=== PATIENT | female | born 1980 | race Caucasian/White ===

== ENCOUNTER 2025-05-31 13:25 | Outpatient (AMB) | payer OTHER, SELFPAY ==
--- NOTE | 2025-05-31 13:28 | MHC.PC.OV ---
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 Required: No Accompanied by: Self / Same As Patient Allergies cat dander (cats) Allergy (Mild, Verified 05/31/25 13:35) Itchy Eyes Medication List - Last Reconciled 05/31/25 by Yuridia Dejesus PA-C No Known Home Meds Tobacco use date assessed: 05/31/25 Dental Screening Dental Screen Date: 05/31/25 Did you have a dental visit in the last 12 months?: No Did you have a dental problem in the last 6 months where you did not have access to dental care?: No Was dental information given to patient?: No 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 Presenting to establish primary care after approximately 20 years without a primary doctor. The patient reports an eczema-like condition in the right ear that is itchy and occasionally painful, which previously had some discharge. This recurred after the patient lapsed in using ear drops prescribed by an urgent care. The patient also reports a recurring rash under the arm and in the antecubital fossa, which has previously responded to exgf-neb-bjusxeg cortisone cream. A lump in the armpit was noted a couple of months ago, which has not been growing or moving. Family history is positive for breast cancer in the maternal grandmother. Eye doctor: Robert yearly mammo: ordered pap smear: referral placed vaccines: Td [facility] Medical History Eczema of external ear Uterine fibroid Family History Paternal Grandmother Breast cancer Heart attack Mother Heart attack, Onset Age: 54 Maternal Grandmother Heart attack Social History Alcohol intake: current Patient Tobacco Use Status: Never used Tobacco e-Cigarette/Vaping Use: Never Used Current occupational status: employed Cognitive needs: No Hearing needs: No Vision needs: Yes Female Reproductive History Menstrual Duration of menses: 6-7 days control method: none Total pregnancies: 0 History of abnormal pap smear: No Questionnaire PHQ-9 Over the last 2 weeks, how often have you been bothered by any of the following problems? 1. Little interest or pleasure in doing things: not at all 2. Feeling down, depressed, or hopeless: not at all 3. Trouble falling or staying asleep, or sleeping too much: not at all 4. Feeling tired or having little energy: several days 5. Poor appetite or overeating: not at all 6. Feeling bad about yourself - or that you are a failure or have let yourself or your family down: not at all 7. Trouble concentrating on things, such as reading the newspaper or watching television: not at all 8. Moving or speaking so slowly that other people could have noticed. Or the opposite - being so fidgety or restless that you have been moving around a lot more than usual: not at all 9. Thoughts that you would be better off or of hurting yourself in some way: not at all Total score: 1 Depression Screening Interpretation: Negative Depression Screening Done: Yes 19724 - PHQ-9 Billing: Yes Source: Developed by Drs. Hill Judd, Karol Barnett, Amilcar Irving and colleagues, with an educational callie from [employer]. Thrive Questionnaire Date Thrive assessed: 05/31/25 I am a: Patient What is your living situation today?: I have a steady place to live Within the past 12 months, did the food you bought not last and you didn't have the money to get more?: Never true Within the past 12 months, did you worry whether your food would run out before you got money to buy more?: Never true Do you have trouble paying for medicines?: I choose not to answer this question Do you have trouble getting transportation to medical appointments?: No Do you have trouble paying your heating and electricity bill?: No Do you have trouble taking care of your child, family member or friend?: I choose not to answer this question Do you have trouble with day-to-day activities such as bathing, preparing meals, shopping, managing finances, etc.?: No Are you currently unemployed and looking for a job?: No Are you interested in more education?: I choose not to answer this question Please select the resources that you would like help with: None Currently or been in a relationship where the following occur: No concerns reported THRIVE Score: 0 AUDIT C Alcohol Use Questionnaire (AUDIT-C) 1. How often do you have a drink containing alcohol?: 2-3 times a week 2. How many drinks containing alcohol do you have on a typical day when you are drinking?: 1 or 2 3. How often do you have six or more drinks on one occasion?: Less than monthly Total Score: 4 Score Reviewed/Action Taken: Yes LIZ-7 AMB Questionnaire LIZ-7 Date LIZ - 7 assessed: 05/31/25 Feeling nervous, anxious, or on edge: 0 = Not at all Not being able to stop or control worryin = Not at all Worrying too much about different things: 0 = Not at all Trouble relaxin = Several days Being so restless that it is hard to sit still: 0 = Not at all Becoming easily annoyed or irritable: 1 = Several days Feeling afraid as if something awful might happen: 0 = Not at all Total LIZ-7 score (0-4 normal; 5-9 mild; 10-14 moderate; 15-21 severe): 2 Source: Developed by Drs. Hill Judd, Karol Barnett, Amilcar Irving and colleagues, with an educational callie from [employer]. Review of Systems Const Denies body aches, Denies chills, Denies fever(s), Denies headache(s) and Denies poor appetite Eyes Reports no additional complaints and Reports requires corrective lenses ENT Denies dysphagia, Denies dizziness, Denies headache(s) and Denies odynophagia Card Denies chest pain, Denies syncope, Denies edema, Denies irregular heart rhythm, Denies lightheadedness and Denies dyspnea Resp Denies cough and Denies dyspnea GI Denies abdominal pain, Denies constipation, Denies dysphagia, Denies diarrhea, Denies nausea, Denies odynophagia and Denies vomiting Reports no additional complaints Musc Reports no additional complaints and Denies abnormal gait Skin/Breast Reports system reviewed and no additional complaints, except as documented Neuro Denies abnormal gait, Denies dizziness, Denies syncope and Denies headache(s) Psych Reports no additional complaints Physical exam (Primary Care) Vital Signs: Last Vital Signs Resp 18 05/31/25 13:30 Oxygen Delivery Method Room Air 05/31/25 13:30 BMI result Body Mass Index 26.3 Tobacco/Smoking Status: Tobacco use Status Patient Tobacco Use Status Never used Tobacco 05/31/25 13:33 Depression Screening Interpretation: Negative Currently or been in a relationship where the following occur: No concerns reported Const General: cooperative, healthy appearing, comfortable and no acute distress Orientation/consciousness: patient oriented x3 HENMT Head: Yes normocephalic Ears: hearing grossly normal bilaterally General nose exam: Normal external nose present Face and sinus: Yes normal facial exam and Yes sinuses nontender Mouth: Normal oral and palatal mucosa present and tongue normal Throat: Yes posterior oropharynx normal Eyes General: appearance normal, both eyes and all related structures Conjunctivae: conjunctivae normal Pupils: Equal, round and reactive pupils present EOM: EOMs intact bilaterally and No Nystagmus present Neck Neck: Yes full ROM and Yes no lymphadenopathy Chest Chest palpation & inspection: normal inspection of the chest Chest/axillae images:  1. soft, nontender, mobile, mass Resp Effort & Inspection: normal respiratory effort Auscultation: clear to auscultation bilaterally, no crackles, no rales, no rhonchi and no wheezes Cardio Rate: regular rate Rhythm: regular rhythm Peripheral pulses: radial pulses present and dorsalis pedis present GI Inspection: Yes normal to inspection and No Abdominal wall edema Palpation (GI): Soft to palpation, not firm and nontender Auscultation: normal bowel sounds Rectal Exam - Female: deferred General: Yes no CVA tenderness Back/Spine/Pelvis Back: no CVA tenderness Skin Other: dry, eczematous rash right pinna and right axilla General skin exam: no rashes or lesions noted Neuro General: patient oriented x3 Cranial nerves: Yes Equal, round and reactive pupils present, Yes Midline tongue present, Yes Ability to bilaterally elevate shoulders present and No Nystagmus present Gait exam (Neuro): Normal gait present Extrem General: Yes normal to inspection, Yes full ROM and No edema Psych Speech and movement: Normal speech and movement present Affect: normal affect Attitude: cooperative Insight: Good insight present (Psych) Judgement: Good judgement present (Psych) Coding Level of Care Code New Pt Prev Care 40-64y(75423) Diagnoses Annual physical exam Z00.00 Eczema L30.9 Eczema of external ear H60.549 Lump of axilla R22.30 Additional Codes PHQ-9 - 06620 - PHQ-9 Billing: Yes ([id number]) Assessment & Plan Assessment & Plan (1) Annual physical exam: Code(s): Z00.00 - Encounter for general adult medical examination without abnormal findings Category: Medical Plan: She is overdue for mammogram and this has been ordered. I did also place a referral for aircraft designer for updated pap smears. Blood work is ordered today. PLan to follow up in 3 months or sooner as needed. Healthy diet and regular exercise is encouraged. (2) Eczema: Code(s): L30.9 - Dermatitis, unspecified Category: Medical Plan: The patient presents with an eczema-like rash in the right ear and under the arms, consistent with dermatitis. The plan includes prescribing a topical cream for both the external ear and arms, along with ear drops for the inflammation and itching within the ear canal. The patient was instructed to use these medications for no more than 14 days, and the prescriptions were sent to the preferred pharmacy. (3) Eczema of external ear: Code(s): H60.549 - Acute eczematoid otitis externa, unspecified ear Category: Medical Plan: see above (4) Lump of axilla: Code(s): R22.30 - Localized swelling, mass and lump, unspecified upper limb Category: Medical Plan: A right axillary lump was identified on exam, which feels like a soft, mobile, and non-tender lymph node, possibly reactive to the dermatitis. To rule out other etiologies, an ultrasound of the area has been ordered. Mammogram and US have been ordered. Plan I discussed with the patient the plan to establish care, which includes a comprehensive workup given the long interval since the patient's last primary care visit. The patient's rashes on the ear and arms appear to be dermatitis, and I have prescribed topical medications for treatment, advising use for no more than 14 days. I have ordered fasting blood work to screen for cholesterol and diabetes, given the strong family history of heart disease, and have also placed referrals for a mammogram and a tai chi instructor. I explained that the patient will receive calls to schedule these appointments and should notify our office if no contact is made within a week or two. We will follow up in three months to go over all test results, and I will call the patient with the lab results regardless of the outcome. This note was constructed using voice recognition software. While every effort has been made to ensure accuracy and transcription coordinator, still areas may have been included sometimes these areas may affect the content or meeting of the given symptoms. Total time spent caring for the patient today was 30 minutes. This includes time spent before the visit reviewing the chart, time spent during the visit, and time spent after the visit and documentation. Patient was informed and verbally consented to the use of an ambient scribe for clinic note documentation during this visit. Orders: Orders Vitamin D 25-OH Total Today Z13.21 - Encounter for screening for nutritional disorder Complete Blood Count Auto Diff Today Z13.0 - Encounter for screening for diseases of the blood and blood-forming organs and certain disorders involving the immune mechanism MM diagnostic mammo BI Today R22.30 - Localized swelling, mass and lump, unspecified upper limb US breast RT limited Today R22.30 - Localized swelling, mass and lump, unspecified upper limb TSH reflex Free T4 Today Z13.29 - Encounter for screening for other suspected endocrine disorder Vitamin B12 and Folate Today Z13.21 - Encounter for screening for nutritional disorder Comprehensive Met. Panel Today Z00.00 - Encounter for general adult medical examination without abnormal findings Lipid Panel Today Z13.220 - Encounter for screening for lipoid disorders Referrals DEVICE ENGINEER Referral Z12.4 - Encounter for screening for malignant neoplasm of cervix Medications: New triamcinolone acetonide 0.5% 1 appl topical DAILY 15 grams 0RF fluocinolone acetonide oil 0.01% (DermOtic Oil) 5 drps otic (ear) right BID 20 mL 0RF 7 days
[2025-05-31 13:30] VITALS: BP 124/82; PULSE 89; RESP 18; O2SAT 99; BMI 26.3
--- OUTSIDE RECORDS SUMMARY | 2025-05-31 15:59 | XMS_ITS | Clinical Summary ---
Author Organization [employer] Address [address] [place] [address] Care Team Providers Care Town Marshal Name Role Phone Unavailable Primary Care Provider Unavailabl e Social History Tobacco Use Types Packs/Day Years Used Date Smoking Tobacco: Never Assessed Comments Unknown Sex and Gender Information Value Date Recorded Sex Assigned at Not on file Legal Sex Female 3:12 PM EDT Gender Identity Not on file Sexual Orientation Not on file Plan of Treatment Health Maintenance Due Date Last Done Comments Depression Screening 1981 HIV Screening 1981 SDOH Screening 1981 Disability Screening 1981 Alcohol/Substance Use Screening 1993 Tobacco Screening 1993 Family Planning (PISQ) 1996 HPV Vaccines (1 - 3-dose series) 1996 Hepatitis C Screening 12/27/1999 DTaP/Tdap/Td Vaccines (1 - Tdap) 2000 Hepatitis B Vaccines (1 of 3 - 19+ 3-dose series) 2000 Pap Smear 2002 Cervical Cancer Screening 12/27/2011 HPV/Cotest 12/27/2011 Mammogram 2021 COVID-19 Vaccine (1 - 2024-2 6 season) 2025 Influenza Vaccine (#1) 2025 Zoster Vaccines (1 of 2) 12/27/2031 RSV Patients and Pa tients Aged 60 years or older (1 - 1-dose 75+ series) 2056 HIB Vaccines Aged Out No longer eligi ble based on patient's age to complete this topic Hepatitis A Vaccines Aged Out No long er eligible based on patient's age to complete this topic IPV Vaccines Aged Out No longer eligi ble based on patient's age to complete this topic Meningococcal B Vaccine Aged Out No l onger eligible based on patient's age to complete this topic Meningococcal Vaccine Aged Out No riky cinthia eligible based on patient's age to complete this topic Pneumococcal Vaccine: Pediat rics (0 to 5 Years) and At-Risk Patients (6 to 49) Years Aged Out No longer eligible b ased on patient's age to complete this topic RSV under 20 months Aged Out No longe r eligible based on patient's age to complete this topic Rotavirus Vaccines Aged Out No longer eligible based on patient's age to complete this topic Insurance [facility]
== END 2025-05-31 14:11 | disposition home or self-care (01) ==
LOC: HO.HMCH 13:25
DX: Z00.00 Encounter for general adult medical examination without abnormal findings (principal); L30.9 Dermatitis, unspecified; H60.541 Acute eczematoid otitis externa, right ear; R22.30 Localized swelling, mass and lump, unspecified upper limb

== ENCOUNTER → 2025-05-31 13:25 | Outpatient (BNVA) | payer OTHER, SELFPAY | DX: Z00.00 Encounter for general adult medical examination without abnormal findings (principal); H60.541 Acute eczematoid otitis externa, right ear; L30.9 Dermatitis, unspecified; R22.30 Localized swelling, mass and lump, unspecified upper limb | CPT/HCPCS: 96127; 99386 ==